=== PATIENT | female | born 1985 | race Caucasian/White ===

== ENCOUNTER 2020-10-30 15:45 | Outpatient (CLI) | payer BC ==
[~2020-10-30] VITALS: Ht 157.5 cm; Wt 129.5 kg
[~2020-10-30 15:45] MED LIST: IBUP-1222 PO; OXYC1TAB14 PO; PREN1TAB60 PO
[2020-10-30 16:36] LABS: BASOPHILS % (AUTO) 1 % (0-1); EOSINOPHILS % (AUTO) 1 % (1-7); LYMPHOCYTES % (AUTO) 30 % (22-44); MEAN CORPUSCULAR HEMOGLOBIN 27.1 pg (27.0-34.8); MEAN PLATELET VOLUME 7.6 fL (7.4-10.4); MONOCYTES % (AUTO) 8 % (2-9); NEUTROPHILS % (AUTO) 60 % (42-75); PLATELET COUNT 319 x10^3/uL (130-400); RED BLOOD COUNT 4.39 x10^6/uL (3.82-5.3); RED CELL DISTRIBUTION WIDTH 14.9 % (9.6-15.2)
[2020-10-30 16:40] LABS: ALANINE AMINOTRANSFERASE 23 U/L (12-78); ALBUMIN 2.3 g/dL (3.4-5.0); ANION GAP 8 mmol/L (5-15); CALCIUM 8.4 mg/dL (8.5-10.1); CHLORIDE 107 mmol/L (98-107); CREATININE 0.44 mg/dL (0.55-1.02)
[2020-10-30 16:43] LABS: ALKALINE PHOSPHATASE 171 U/L (45-117); BILIRUBIN,TOTAL 0.3 mg/dL (0.2-1.0); TOTAL PROTEIN 6.3 g/dL (6.4-8.2)
[2020-10-30 16:51] LABS: TOTAL PROTEIN,URINE RANDOM < 5 mg/dL (0-12)
[2020-10-30 17:00] LABS: MICROSCOPIC INDICATED
== END 2020-10-30 17:50 | disposition home or self-care (01) ==
LOC: LDOP 15:45
PROVIDERS: ATTEND Obstetrics & Gynecology
DX: O36.8130 Decreased fetal movements, third trimester, not applicable or unspecified (principal); R60.9 Edema, unspecified; Z3A.38 38 weeks gestation of pregnancy
CPT/HCPCS: 36415; 59025; 76819; 80053; 81001; 82570; 84156; 84550; 85025

== ENCOUNTER 2020-11-05 05:26 | Inpatient (IN) | payer BC ==
[~2020-11-05] VITALS: Ht 157.5 cm; Wt 120.0 kg
[2020-11-05] MEDS ORDERED: SODIUM CITRATE/CITRIC ACID 15 ML UDC ONE (06:56)
[2020-11-05] MEDS ORDERED: CEFAZOLIN PMX 1GM/50ML 50 ML IVPB ONE (07:00)
[2020-11-05] MEDS ORDERED: SODIUM CITRATE/CITRIC ACID 30 ML UDC PO ONE (07:00)
[2020-11-05] MEDS ORDERED: CALCIUM CARBONATE 500 MG TAB.CHEW PO PRN (07:00)
[2020-11-05] MEDS ORDERED: AZITHROMYCIN 500 MG in SODIUM CHLORIDE 0.9% 250 ML IV ONE (07:00)
[2020-11-05] MEDS ORDERED: ONDANSETRON 2MG/ML, 2ML IVPush ONE (07:00)
[2020-11-05] MEDS ORDERED: METOCLOPRAMIDE 5 MG/ML, 2ML IV ONE (07:00)
[2020-11-05] MEDS ORDERED: LACTATED RINGERS 1,000 ML IVBOLUS ONE (07:00)
[2020-11-05] MEDS ORDERED: CLINDAMYCIN PMX 900MG/50ML 50 ML IVPB ONE (07:00)
[2020-11-05] MEDS ORDERED: NEWBORN KIT ONE (07:01)
[2020-11-05 07:26] LABS: BASOPHILS % (AUTO) 1 % (0-1); EOSINOPHILS % (AUTO) 1 % (1-7); LYMPHOCYTES % (AUTO) 30 % (22-44); MEAN CORPUSCULAR HEMOGLOBIN 27.4 pg (27.0-34.8); MEAN CORPUSCULAR HGB CONC 32.6 g/dL (32.4-35.8); MEAN PLATELET VOLUME 7.6 fL (7.4-10.4); MONOCYTES % (AUTO) 6 % (2-9); NEUTROPHILS % (AUTO) 63 % (42-75); PLATELET COUNT 282 x10^3/uL (130-400); RED BLOOD COUNT 4.24 x10^6/uL (3.82-5.3); RED CELL DISTRIBUTION WIDTH 15.2 % (9.6-15.2)
[2020-11-05 07:35] LABS: ALANINE AMINOTRANSFERASE 22 U/L (12-78); ALBUMIN 2.1 g/dL (3.4-5.0); ANION GAP 7 mmol/L (5-15); CALCIUM 8.5 mg/dL (8.5-10.1); CHLORIDE 107 mmol/L (98-107); CREATININE 0.44 mg/dL (0.55-1.02)
[2020-11-05 07:36] LABS: BILIRUBIN, DIRECT < 0.1 mg/dL (0.1-0.2)
[2020-11-05 07:38] LABS: ALKALINE PHOSPHATASE 169 U/L (45-117); BILIRUBIN,TOTAL 0.2 mg/dL (0.2-1.0); TOTAL PROTEIN 5.8 g/dL (6.4-8.2)
[2020-11-05 07:45] VITALS: BP 122/72
[2020-11-05] MEDS ORDERED: morphine SULFATE/PF 0.5 MG/ML, 10ML ONE (08:13)
[2020-11-05] MEDS ORDERED: ONDANSETRON 2MG/ML, 2ML ONE (08:15)
[2020-11-05] MEDS ORDERED: KETOROLAC 30 MG/1 ML ONE (08:15)
[2020-11-05] MEDS ORDERED: PHENYLEPHRINE 10 MG/ML ONE (08:15)
[2020-11-05] MEDS ORDERED: DEXAMETHASONE 4 MG/ML, 1ML ONE (08:15)
[2020-11-05] MEDS ORDERED: SODIUM CHLORIDE 0.9% PF 10ML ONE (08:15)
[2020-11-05] MEDS ORDERED: CEFAZOLIN 1,000 MG ONE (08:15)
[2020-11-05] MEDS ORDERED: OXYTOCIN 10 UNITS/ML, 1ML ONE ×2 (08:15→08:56)
[2020-11-05 09:04] LABS: MICROSCOPIC INDICATED
[2020-11-05] MEDS ORDERED: TRANEXAMIC ACID 100 MG/ML, 10ML IV ONE (09:30)
[2020-11-05] MEDS ORDERED: ONDANSETRON 2MG/ML, 2ML IV PRN ×2 (09:30→11:30)
[2020-11-05] MEDS ORDERED: MORPHINE SULFATE 4 MG/ML, 1ML IVPush PRN (09:30)
[2020-11-05] MEDS ORDERED: CARBOPROST TROMETHAMINE 250 MCG/ML, 1ML IM PRN (09:30)
[2020-11-05] MEDS ORDERED: morphine SULFATE 10 MG/ML, 1ML IM PRN (09:30)
[2020-11-05] MEDS ORDERED: METHYLERGONOVINE 0.2 MG/ML IM PRN (09:30)
[2020-11-05] MEDS ORDERED: MISOPROSTOL 200 MCG TABLET PR PRN (09:30)
[2020-11-05] MEDS: LACTATED RINGERS 1,000 ML IV SCH ×4 (09:30→21:44)
[2020-11-05] MEDS ORDERED: OXYcodone 5 MG/5 ML ORAL.SOL UDC ONE (10:19)
[2020-11-05] MEDS ORDERED: OXYcodone 5 MG/5 ML ORAL.SOL UDC PO PRN ×2 (10:30→11:30)
[2020-11-05] MEDS ORDERED: PREN1TAB60 PO (10:38)
[2020-11-05] MEDS ORDERED: ONDA4TAB13 SL (10:39)
[2020-11-05] MEDS: OXYTOCIN 30U/ 0.9% NaCL 500ML 500 ML IV SCH ×2 (11:12→19:30)
[2020-11-05] MEDS ORDERED: MEPERIDINE/PF 25MG/0.5ML IV PRN (11:30)
[2020-11-05] MEDS ORDERED: METOCLOPRAMIDE 5 MG/ML, 2ML IVPush PRN (11:30)
[2020-11-05] MEDS ORDERED: EPHEDRINE 50 MG/ML, 1ML IVPush PRN ×2 (11:30)
[2020-11-05] MEDS ORDERED: DIPHENHYDRAMINE 50 MG/ML, 1ML IV PRN (11:30)
[2020-11-05] MEDS ORDERED: KETOROLAC 30 MG/1 ML IVPush SCH (11:30)
[2020-11-05] MEDS ORDERED: OXYcodone/APAP 5/325MG TABLET PO PRN (11:30)
[2020-11-05] MEDS ORDERED: ONDANSETRON 2MG/ML, 2ML IVPush PRN (11:30)
[2020-11-05] MEDS ORDERED: NALOXONE 0.4 MG/ML, 1ML IV PRN (11:30)
[2020-11-05] MEDS ORDERED: NO SEDATIVES, TRANQUILIZERS OR ANTIEMETICS XX SCH (11:30)
[2020-11-05] MEDS ORDERED: FENTANYL PF 100 MCG/2ML IVPush PRN (11:30)
[2020-11-05 12:00] VITALS: BP 114/76
[2020-11-05] MEDS ORDERED: morphine SULFATE 10 MG/ML, 1ML IVPush PRN (12:00)
[2020-11-05] MEDS ORDERED: PROMETHAZINE 25 MG/ML, 1ML IM ONE (15:00)
[2020-11-05] MEDS: KETOROLAC 30 MG/1 ML IV SCH ×2 (15:13→21:44)
[2020-11-05 16:00] VITALS: BP 122/80
[2020-11-05 18:10] LABS: BASOPHILS % (AUTO) 0 % (0-1); EOSINOPHILS % (AUTO) 0 % (1-7); LYMPHOCYTES % (AUTO) 9 % (22-44); MEAN CORPUSCULAR HEMOGLOBIN 27.2 pg (27.0-34.8); MEAN CORPUSCULAR HGB CONC 32.3 g/dL (32.4-35.8); MEAN PLATELET VOLUME 7.9 fL (7.4-10.4); MONOCYTES % (AUTO) 4 % (2-9); NEUTROPHILS % (AUTO) 87 % (42-75); PLATELET COUNT 314 x10^3/uL (130-400); RED BLOOD COUNT 4.49 x10^6/uL (3.82-5.3); RED CELL DISTRIBUTION WIDTH 15.3 % (9.6-15.2)
[2020-11-05 21:30] VITALS: BP 95/66
[2020-11-06 01:00] VITALS: BP 107/69
[2020-11-06] MEDS: LACTATED RINGERS 1,000 ML IV SCH ×5 (01:30→17:15)
[2020-11-06] MEDS: KETOROLAC 30 MG/1 ML IV SCH ×2 (03:24→09:29)
[2020-11-06 04:30] VITALS: BP 110/76
[2020-11-06] MEDS: OXYTOCIN 30U/ 0.9% NaCL 500ML 500 ML IV SCH ×2 (05:30→15:30)
[2020-11-06 08:15] VITALS: BP 116/77
[2020-11-06] MEDS: PRENATAL VIT/IRON/FA 1 EACH TABLET PO SCH (09:29)
[2020-11-06] MEDS: DOCUSATE 100 MG CAPSULE PO PRN ×2 (09:29→20:46)
[2020-11-06] MEDS: OXYcodone IR 5MG TABLET PO PRN ×2 (14:30→20:47)
[2020-11-06] MEDS: IBUPROFEN 800 MG TABLET PO PRN (16:41)
[2020-11-06 19:55] VITALS: BP 137/85
[2020-11-06] MEDS: SIMETHICONE 80 MG CHEW TAB PO PRN (20:46)
[2020-11-07] MEDS: IBUPROFEN 800 MG TABLET PO PRN ×2 (00:58→09:01)
[2020-11-07] MEDS: OXYcodone IR 5MG TABLET PO PRN ×4 (00:58→14:08)
[2020-11-07] MEDS: OXYTOCIN 30U/ 0.9% NaCL 500ML 500 ML IV SCH ×2 (01:30→11:30)
[2020-11-07] MEDS: LACTATED RINGERS 1,000 ML IV SCH ×4 (01:30→11:30)
[2020-11-07] MEDS: SIMETHICONE 80 MG CHEW TAB PO PRN ×2 (02:45→09:59)
[2020-11-07 09:01] VITALS: BP 123/85
[2020-11-07] MEDS: DOCUSATE 100 MG CAPSULE PO PRN (09:01)
[2020-11-07] MEDS: PRENATAL VIT/IRON/FA 1 EACH TABLET PO SCH (09:01)
[2020-11-07] MEDS ORDERED: IBUPROFEN 800 MG TABLET PO PRN (09:30)
[2020-11-07] MEDS ORDERED: IBUP-1222 PO (11:09)
[2020-11-07] MEDS ORDERED: OXYC1TAB14 PO (11:11)
[2020-11-07] MEDS ORDERED: DOCU-131 PO (11:12)
== END 2020-11-07 15:00 | disposition home or self-care (01) | DRG 788 ==
LOC: LDOP 05:26 → UNDOADMIN 06:16 → LDIP 06:16 → 2NW 11:47
PROVIDERS: ADMIT Obstetrics & Gynecology; ATTEND Obstetrics & Gynecology
PROC: 10D00Z1 Extraction of Products of Conception, Low, Open Approach (ICD-10-PCS; principal; 2020-11-05)
DX: O34.211 Maternal care for low transverse scar from previous cesarean delivery (principal); Z20.822 Contact with and (suspected) exposure to COVID-19; Z37.0 Single live birth; Z3A.38 38 weeks gestation of pregnancy; O69.81X0 Labor and delivery complicated by cord around neck, without compression, not applicable or unspecified
CPT/HCPCS: 36415; 80053; 81001; 82248; 82570; 84156; 84550; 85025; 86592; 86850; 86900; 87635; G0378; J0690; J1100; J1885; J2274; J2405; J2550; J1200; J2370; J2590; J2765; J7120